=== PATIENT | female | born 1995 | race Caucasian/White ===

== ENCOUNTER 2022-04-06 08:12 | Outpatient (CLI) | payer BC, SELFPAY ==
--- NOTE | 2022-04-06 08:15 | CRLHL7_ITS ---
For Patients: As a result of the Cures Act, medical imaging exams and procedure reports are released immediately into your electronic medical record. You may view this report before your referring provider. If you have questions, please contact your health care provider. OB ULTRASOUND, 04/06/2022 SCOTT by LMP: Unknown. INDICATION: Dating and viability. FINDINGS: Cervix: Visualized. position: Breech. Amniotic fluid: Within normal limits. Placenta: Technique: Transabdominal. Position: Anterior. dopplers: heart rate 171 bpm. BPD: 2.8 cm. 15 w 0 d. HC: 10.8 cm. 15 w 1 d. AC: 8.9 cm. 15 w 1 d. FL: 1.6 cm. 14 w 4 d. FL/AC: 17.5%. HC/AC Ratio: 1.22. EFW: 109 g. Weight: 0 lbs, 4 oz. age by this US: 15 w 0 d. SCOTT by this US: 09/28/2022. IMPRESSION: Single live intrauterine gestation. Gestational age of 15 weeks 0 days. SCOTT of 09/28/2022. Rekha Solorio M.D. Diagnostic/Breast Radiologist [email or web address] [email or web address] shelton/Dictated by: Rekha Solorio MD @ 04/06/2022 9:18:00 AM (Electronically Signed)
== END 2022-04-06 08:13 | disposition home or self-care (01) ==
LOC: US 08:14
PROVIDERS: Visit Provider Physician Assistant
DX: Z34.93 Encounter for supervision of normal pregnancy, unspecified, third trimester (principal); Z3A.15 15 weeks gestation of pregnancy
CPT/HCPCS: 76815; 86592; 86703; 86762; 86787; 86803; 86850; 86900; 86901; 87086; 87340

== ENCOUNTER 2022-05-04 07:12 | Outpatient (CLI) | payer BC, SELFPAY ==
--- NOTE | 2022-05-04 07:15 | CRLHL7_ITS ---
For Patients: As a result of the Century Cures Act, medical imaging exams and procedure reports are released immediately into your electronic medical record. You may view this report before your referring provider. If you have questions, please contact your health care provider. INDICATION: Evaluate anatomy. COMPARISON: 04/06/2022 TECHNIQUE: Real time ortiz scale imaging of the fetus was performed as well as color Doppler analysis of the umbilical vessels. FINDINGS: Sonographic imaging demonstrates a single living intrauterine gestation. Fetus demonstrates a regular cardiac rate of 168 beats per minute. Fetus has a vertex position. The placenta lies anteriorly without evidence of placenta previa. The edge of the placenta is located 10 cm from the internal cervical os. Amniotic fluid volume appears normal. Single deepest vertical pocket: 4.5 cm. The cervix is closed and measures 3.5 cm in length. The composite ultrasound gestational age is calculated at 19 weeks 1 day with an estimated sonographic due date of 09/27/2022. The estimated weight is 252 grams which lies at the 28th %. The following biometric measurements were obtained: Biparietal diameter: 4.6 cm/20 weeks 0 days 87th% Head circumference: 16.6 cm/19 weeks 2 days 56th% Abdominal circumference: 13.5 cm/19 weeks 0 days 44th% Femur length: 2.7 cm/18 weeks 1 day 16th% The HC/AC ratio measures: 1.23 range (1.09-1.26) On anatomic survey, there is a normal appearance of the cerebral ventricles, cavum septi pellucidi, cisterna magna and cerebellum. The nose, lips, and facial profile appear normal. The cervical, thoracic and lumbar spine are well visualized and appear normal. There is a normal four-chamber heart view and the left and right ventricular outflow tracts appear normal. The diaphragm and stomach appear normal. The kidneys and bladder also appear normal. There is a normal three-vessel cord and cord insertion site. The four extremities appear normal. IMPRESSION: Normal OB ultrasound exam with concordance of clinical and sonographic dating. No intrinsic abnormalities noted on anatomic survey. Dictated by Lawrence Rubio MD @ 05/04/2022 10:05:26 AM (Electronically Signed)
== END 2022-05-04 07:13 | disposition home or self-care (01) ==
PROVIDERS: Visit Provider Physician Assistant
DX: Z34.92 Encounter for supervision of normal pregnancy, unspecified, second trimester (principal); Z3A.19 19 weeks gestation of pregnancy
CPT/HCPCS: 76805

== ENCOUNTER 2022-09-08 15:23 | Outpatient (CLI) | payer BC, SELFPAY ==
[2022-09-09 12:52] LABS: Strep B DNA Probe POSITIVE (Negative)
[2022-09-09 12:54] LABS: Strep B Pen/Amox Allergy No
== END 2022-09-08 15:24 | disposition home or self-care (01) ==
PROVIDERS: Visit Provider Advanced Practice Midwife
DX: Z34.93 Encounter for supervision of normal pregnancy, unspecified, third trimester (principal); Z3A.37 37 weeks gestation of pregnancy
CPT/HCPCS: 87081; 87653

== ENCOUNTER 2022-10-05 08:12 | Outpatient (CLI) | payer BC, SELFPAY ==
--- NOTE | 2022-10-05 08:15 | CRLHL7_ITS ---
For Patients: As a result of the Century Cures Act, medical imaging exams and procedure reports are released immediately into your electronic medical record. You may view this report before your referring provider. If you have questions, please contact your health care provider. INDICATION: post dates COMPARISON: none TECHNIQUE: Real time ortiz scale imaging of the fetus was performed. Without non-stress testing. FINDINGS: Sonographic imaging demonstrates a single living intrauterine gestation. Fetus demonstrates a regular cardiac rate of 139 beats per minute. Fetus has a vertex position. The amniotic fluid volume appears normal and there is a single deepest pocket measurement of 9.2 cm. PANCHITO 26.1 cm. The fetus was active and demonstrated normal breathing movements. There was normal flexion and extension of the trunk and extremities. IMPRESSION: Normal biophysical profile score of 8 out of 8. Dictated by Lawrence Rubio MD @ 10/05/2022 11:18:39 AM (Electronically Signed)
== END 2022-10-05 08:13 | disposition home or self-care (01) ==
PROVIDERS: Visit Provider Advanced Practice Midwife
DX: O40.3XX0 Polyhydramnios, third trimester, not applicable or unspecified (principal)
CPT/HCPCS: 76819

== ENCOUNTER 2022-10-05 16:56 | Inpatient (IN) | payer BC, SELFPAY ==
[2022-10-05 17:23] VITALS: BP 139/95; PULSE 92; PULSE 96; RESP 16; TEMP 36.6; O2SAT 98; BMI 37.6
[2022-10-05 18:21] LABS: SARS PCR* Negative SARS-CoV-2 (Negative)
[2022-10-05 18:36] VITALS: BP 121/71; PULSE 81
[2022-10-05] MEDS: DINOPROSTONE 10 MG VAGINAL INSERT VAGINAL (18:48)
--- NOTE | 2022-10-05 19:06 | W.PM.LDBA ---
Subjective History of Present Illness Narrative: Patient is being admitted to Labor and Delivery for induction of labor for polyhydramnios diagnosed today at her 41 week visit with BPP. She is a 27 year old at 41 0/7 weeks gestation. She reports that she is certain her due date is actually 4 days from now based on known date of conception. She is aware that with polyhydramnios, we would recommend induction of labor typically between 39 0/7-39 6/7 or anytime after at time of diagnois. She is supported by her and mother. All questions and concerns have been answered. Her full history and physical was dictated by CLEO Gutierrez on 09/08/2022. Please see this for details. OB PROBLEM LIST 1. First visit @ 15 weeks, late entry to care; routine since 2. Severe needle phobia Desires finger poke blood draw at 28 and 36 weeks: NEED ORDER AT WEEK FOR HGB 14% home testing out of range (10/27). Discontinued testing. 3. Unimmunized, has had no childhood vaccinations. Rubella non-immune, likely decline pp vaccine 5. ED visit [place] 04/29/2022. Presented for recurrent episodes of right lower quadrant pain. While in ED she was asymptomatic, Ob ultrasound was normal, no further workup 6. Anemia?, hgb by fingerpoke 9.6; previously 14.5 at 28 weeks Declines confirmation testing, consider finger poke hgb on admission if possible Plans to start oral iron, M/W/F; Has taken consistently 7. GBS +, Pt aware. DOES NOT WANT TO DISCUSS AGAIN Declination form signed, declines treatment. Please do not discuss with patient again, per her preference. 8. Elevated BP [facility] diagnosis of HTN, 128/90, 124/90 9. Mild polyhydramnios, PANCHITO 26.1 dx at 41.0 weeks. OB - Problem Based A/P Additional Plan (1) Encounter for induction of labor: Status: Acute (2) Polyhydramnios in [place] in third trimester: Status: Acute (3) Elevated blood pressure reading without diagnosis of hypertension: Status: Acute (4) Anemia affecting : Problem details: Possibly inaccurate, taking oral iron; severe needle phobia Status: Acute Plan ASSESSMENT:? 27 at 41 0/7 weeks gestation? complicated by:?late entry to care, unimmunized, Anemia at 36 weeks, GBS +, and Mild polyhydramnios, elevated BP without diagnosis of HTN Labor type: Induced? Category 1 FHR pattern.?? Labor complicated by: Polyhydramnios? GBS positive, declines treatment. GBS declination form signed and on file.? ? PLAN:? 1. Routine intrapartum cares as ordered. Reviewed induction options including Cytotec, Cervidil, cook catheter, and Pitocin. Recommend starting with Cervidil due to time of day, GBS status, and patient preference for minimal intervention. 2. Monitoring per policy, continuous with polyhydramnios and Cervidil? 3. Planning unmedicated . Desires water . Consent signed. Hep C negative. Candidate for analgesia of choice if desired.?? 4. Patient encouraged to reposition and ambulate to promote physiologic labor and .? 5. GBS discussed in length in clinic. Patient declines treatment.desires to not re-discuss during hospital stay. GBS declination signed and scanned into chart. Will try to limit cervical exams and AROM when able. 6. Hgb at 36 by finger poke was 9.6. Patient has severe needle phobia, willing to do lab by finger poke if necessary but prefers to avoid if possible. 28 week hemoglobin by venipuncture was 14.5, most recent hgb may not be the most reliable. Patient has been taking iron supplements and vitamins since. Will draw labs if IV needed for Pitocin. Discussed increased risk for bleeding with polyhydramnios due to uterine atony, will consider AMTSL if concerns for bleeding. Otherwise patient prefers expectant management. 6. Continue to monitor blood pressure. Has been normotensive with 1 reading of 128/90 with repeat 124/90 at visit. Patient possibly has undiagnosed anxiety. Will continue to monitor blood pressures, would discuss labs if necessary. 7. Anticipate Delivery/Labor/Induction Plan Induction method: Cervidil OB Exam Physical Exam Vital signs: Pulse BP Pulse Ox 81 121/71 98 10/05/22 18:36 10/05/22 18:36 10/05/22 17:23 Narrative: Vitals Reviewed Constitutional:? Alert and oriented x3 HEENT:? Normocephalic, atraumatic Neck:? Supple Lungs:? Clear to auscultation bilaterally Heart:? Regular rate and rhythm, no murmur, rub or gallop Abdomen:? Soft, nontender, and gravid. Vertex by Bob's, confirmed with cervical exam. Extremities:? 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 Fetus demonstrates a regular cardiac rate of 139 beats per minute.? Fetus has a vertex position. The amniotic fluid volume appears normal and there is a single deepest pocket measurement of 9.2 cm. PANCHITO 26.1 cm. The fetus was active and demonstrated normal breathing movements. There was normal flexion and extension of the trunk and extremities.? IMPRESSION: Normal biophysical profile score of 8 out of 8. Dictated by Lawrence Rubio MD @ 10/05/2022 11:18:39 AM
[2022-10-05 20:04] VITALS: BP 117/83; PULSE 100
[2022-10-05 20:05] VITALS: RESP 18; TEMP 36.6
[2022-10-06] VITALS (10 sets, daily range): BP systolic 118–135; BP diastolic 62–86; PULSE 78–102; RESP 16–18; TEMP 36.3–36.8
--- NOTE | 2022-10-06 08:13 | PM.OBPNL ---
Documented by User: Cathie Buchanan 10/06/22 08:21 Subjective Date Seen: 10/06/22 Narrative: Elizabeth is coping well with contractions. She was able to sleep overnight and is feeling some contractions this morning. She notes the contractions stop with some positions. Objective Exam: Objective:?? Constitutional: Alert and oriented x3, mild distress, coping well? Vital signs stable, see nurse documentation?? Abdomen: gravid, contractions palpate mild with contractions and soft between Vital Signs: Last Vital Signs Temp 98.3 F 10/06/22 07:15 Pulse 88 10/06/22 07:15 Resp 16 10/06/22 07:15 BP 120/74 10/06/22 07:15 Pulse Ox 98 10/05/22 17:23 Contractions Monitor mode: External Contraction pattern: Regular Contraction intensity: Mild Assessment Assessment: induction ongoing Status: Category l Heart Rate Baseline: 125 Nursing Home Variability: Moderate (6-25) Monitor Accelerations: Present Monitor Decelerations: None Plan Plan: 28year old at 41.1 weeks gestation? complicated by:?Polyhydramnios, anemia, elevated BP without diagnosis of HTN, Rubella non-immune Labor type: Induced, Early labor? Category 1 FHR pattern.?? Labor complicated by: NA? GBS positive? ? PLAN:? 1. Routine intrapartum cares as ordered. Continue with induction of labor for polyhydramnios 2. Monitoring per policy, continuous ? 3. Planning unmedicated . Desires water . Consent signed. Hep C negative. Candidate for analgesia of choice.?? 4. Patient encouraged to reposition and ambulate to promote physiologic labor and .? 5. GBS prophylaxis declined for GBS positive status. Limit vaginal exams. 6. Anticipate Documented by User: Niru Juarez CNM 10/06/22 12:53 Objective Exam: Objective:?? Constitutional: Alert and oriented x3, mild distress, coping well? Vital signs stable, see nurse documentation?? Abdomen: gravid, contractions palpate mild with contractions and soft between. head palpates on maternal right hip, not engaged in pelvis. Plan Plan: 28year old at 41.1 weeks gestation? complicated by:?Polyhydramnios, anemia, elevated BP without diagnosis of HTN, Rubella non-immune Labor type: Induced, Early labor? Category 1 FHR pattern.?? Labor complicated by: NA? GBS positive? ? PLAN:? 1. Routine intrapartum cares as ordered. Continue with induction of labor for polyhydramnios. Discussed giving more time and reassess for further intervention in a few hours. 2. Monitoring per policy, continuous ? 3. Planning unmedicated . Desires water . Consent signed. Hep C negative. Candidate for analgesia of choice.?? 4. Patient encouraged to reposition and ambulate to promote physiologic labor and .? 5. GBS prophylaxis declined for GBS positive status. Limit vaginal exams. 6. Anticipate
[2022-10-06] MEDS: miSOPROStoL 25 MCG/0.25 TABLET VAGINAL ×3 (10:13→18:28)
--- NOTE | 2022-10-06 11:20 | P.OBPN_ITS ---
Subjective Time Seen by Provider: 09:30 Date Seen: 10/06/22 Narrative: Elizabeth is up walking in the room. She reports she no longer feels the contractions, although able to trace some on the monitor. She requested a vaginal exam at this time to help with a plan going forward. Her mother and partner are present and supportive. Objective Exam: Constitutional: Alert and oriented x3, no distress, coping well? Vital signs stable, see nurse documentation?? Abdomen: gravid, contractions palpate mild with contractions and soft between Vital Signs: Last Vital Signs Temp 98.3 F 10/06/22 07:15 Pulse 88 10/06/22 07:15 Resp 16 10/06/22 07:15 BP 120/74 10/06/22 07:15 Pulse Ox 98 10/05/22 17:23 Pelvic Exam Dilation (cm): Finger tip Effacement (%): 0 Station: high Comments: Head does not feel like it is descended into pelvis, off to right by Bob's. 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 complicated by:?late entry to care, unimmunized, Anemia at 36 weeks, GBS +, and Mild polyhydramnios, elevated BP without diagnosis of HTN Labor type: Induced? Category 1 FHR pattern.?? Labor complicated by: Polyhydramnios? GBS positive, declines treatment. GBS declination form signed and on file.? ? PLAN:? 1. Routine intrapartum cares as ordered. Reviewed induction options including Cytotec and Pitocin. As patient is not feeling contractions at this time, opted for Cytotec vaginally every 4 hours per protocol. 2. Monitoring per policy, continuous with polyhydramnios and Cervidil? 3. Planning unmedicated . Desires water . Consent signed. Hep C negative. Candidate for analgesia of choice if desired.?? 4. Patient encouraged to reposition and ambulate to promote physiologic labor and .? 5. GBS discussed in length in clinic. Patient declines treatment.desires to not re-discuss during hospital stay. GBS declination signed and scanned into chart. Will try to limit cervical exams and AROM when able. 6. Continue to monitor blood pressure. Has been normotensive since admission other than one reading of 135/95 with a non-elevated BP after. Patient possibly has undiagnosed anxiety. Will continue to monitor blood pressures, would discuss labs if necessary. 7. Anticipate
[2022-10-07] VITALS (48 sets, daily range): BP systolic 99–140; BP diastolic 57–87; PULSE 67–139; RESP 16; TEMP 36.4–37.2; O2SAT 97–100
--- NOTE | 2022-10-07 00:54 | P.OBPN_ITS ---
Subjective Date Seen: 10/07/22 Narrative: Aleyda was given a dose of Cytotec around 1800. She states that the c ontractions stared to increase in intensity shortly after this dose. She continued to have contractions that increased in intensity and she was able to cope well with them and changed positions frequently. She experienced SROM while sitting on the toilet at 2115. Her contractions then increased more in intensity and she requested to get in the tub. She was able to be moved to the waterbirth room at that time. She has since labored in the tub with great control and is coping well. She felt the urge to push and was found to be complete at 0027. She is now pushing effectively in the tub. 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 Anticipate . Candidate for analgesia of choice. Plans unmedicated. GBS positive. Declines antibiotic treatment. Polyhydramnios. Continuous monitoring. SROM without incident.
[2022-10-07] MEDS: LACTATED RINGERS 1000 ML 1,000 ML 1125 ML IV (05:47)
[2022-10-07] MEDS: ROPIVACAINE 0.2% 100 ml 100 ML 12 MG EPIDURAL (06:35)
[2022-10-07] MEDS: LIDOCAINE 2% (PF) 5 ML VIAL EPIDURAL (06:35)
--- NOTE | 2022-10-07 07:07 | P.ANBPRC_ITS ---
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 . 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 Smoking Status: Never smoker Little interest or pleasure in doing things: not at all Feeling down, depressed, or hopeless: not at all Meds Home Medications and Allergies Home Medications Medication Instructions Recorded Confirmed Type multivitamin (Multiple Vitamins 1 tab PO QDAY 04/06/22 10/05/22 History tablet) ferrous gluconate 240 mg (27 mg 480 mg PO QDAY 10/05/22 10/05/22 History iron) tablet (Ferate) lactobacillus combination no.4 3 3,000 mmu cells PO QDAY 10/05/22 10/05/22 History billion cell capsule (Probiotic) Allergies Allergy/AdvReac Type Severity Reaction Status Date / Time No Known Drug Allergies Allergy Verified 10/05/22 10:13 Results Vital Signs Vital Signs: Last Vital Signs Temp 99 F 10/07/22 04:55 Pulse 139 H 10/07/22 07:03 Resp 16 10/07/22 04:55 BP 109/69 10/07/22 07:03 Pulse Ox 100 10/07/22 06:27 Weight: 102.654 kg Height: 165.1 cm Anesthesia Procedures Epidural Insertion Patient Location: OB Start Time: 06:00 Stop Time: 07:00 Start Date: 10/07/22 Stop Date: 10/07/22 Reason for Block: procedure for pain Patient Position: sitting Performed By: Lizzie Grider Preanesthetic Checklist: IV checked, risks and benefits discussed, monitors and equipment checked, pre-op evaluation, timeout performed and anesthesia consent Prep: chlorhexidine gluconate Monitoring: blood pressure monitoring, continuous pulse oximetry and heart rate Approach: midline Vertebral Space: lumbar (1-5) Needle Type: Tuohy needle Injection Technique: continuous catheter (continuous catheter) Needle gauge: 17 Needle Length (cm): 10 cm Needle Insertion Depth (cm): 8 Catheter Gauge: 19 Catheter Type: multi-orifice Catheter at skin depth (cm): 15 Test Dose Result: negative and lidocaine 1.5% with epinephrine 1 to 200,000
[2022-10-07] MEDS: LACTATED RINGERS 1000 ML 1,000 ML 925 ML IV (08:03)
[2022-10-07] MEDS: OXYTOCIN 30 unit/500 ML in NS 30 UNIT/500 ML BAG IVPB (08:05)
--- NOTE | 2022-10-07 10:02 | PM.OBCN1 ---
OB - CN: HPI Date of Consult Date Seen: 10/07/22 Patient: [facility] Patient Consult date: 10/07/22 Requesting Physician: Denise Caceres CNM Primary Care Provider: Not a Local Provider Consult Narrative Reason for consult: arrest of labor Narrative: The patient is a 27 year old G 1 P 0 at 41 2/7 weeks gestation that was admitted to the Center on 10/05/22 for induction of labor secondary to polyhydramnios and postdates gestation. GBS positive, declined antibiotic prophylaxis. Induction initiated with oral Misoprostol. SROM at 2115 on 10/06/2022. She reached complete cervical dilation at 0030 this morning and actively pushed for about 3 hours. Deep variable and some late decelerations with pushing. Labored down for another 4 hours while doing maternal position changes. Contractions spaced. Epidural administered for pain control at approximately 7am. Now having occasional late decelerations of the heart rate again, mixed with periods of good variability and accelerations. No further rotation or descent of the vertex on miwife's exam. OB PROBLEM LIST 1. First visit @ 15 weeks, late entry to care; routine since 2.? Severe needle phobia Desires finger poke blood draw at 28 and 36 weeks: NEED ORDER AT WEEK FOR HGB 14% home testing out of range (10/27). Discontinued testing. 3.? Unimmunized, has had no childhood vaccinations. Rubella non-immune, likely decline pp vaccine 5. ED visit [place] 04/29/2022.? Presented for recurrent episodes of right lower quadrant pain.? While in ED she was asymptomatic, Ob ultrasound was normal, no further workup 6. Anemia?, hgb by fingerpoke 9.6; previously 14.5 at 28 weeks Declines confirmation testing, consider finger poke hgb on admission if possible Plans to start oral iron, M/W/F; Has taken consistently 7.? GBS +, Pt aware. DOES NOT WANT TO DISCUSS AGAIN Declination form signed, declines treatment. Please do not discuss with patient again, per her preference. 8. Elevated BP [facility] diagnosis of HTN, 128/90, 124/90 9. Mild polyhydramnios, PANCHITO 26.1 dx at 41.0 weeks. History of Present Dating criteria: based on 1st trimester US only History History 1 Elective abortions Para 0 Spontaneous abortions Hx # Term Pregnancies Ectopic pregnancies Hx # Pregnancies Multiple births Number of Living Children Labs Blood type: O (+) positive Rubella: nonimmune RPR/VDLR: nonreactive GBS status: positive HBsAG: negative OB Labs: Lab Assessment Start: 10/05/22 17:12 Freq: ONCE Status: Complete Protocol: [employer] Activity Type Activity Date Activity User E-sign Co-sign Detail Recorded Client Recorded Date Recorded By Document 10/05/22 17:24 [facility] 10/05/22 17:25 [facility] 10/05/22 17:24 Lab Assessment GBS Positive Previous [place] with Invasive GBS No Does Patient Meet Criteria Yes Is Patient Allergic to Penicillin No Treatment Required OK Maternal Blood Type O Maternal RH Factor Positive Evaluate Maternal Rubella Immune Status Non-Immune Hepatitis B Surface Antigen Negative Maternal HIV Status Negative Maternal Syphillis (RPR) Status Negative Are Labs Available Yes Lab Assessment Start: 10/05/22 18:25 Freq: Status: Complete Protocol: [place] Activity Type Activity Date Activity User E-sign Co-sign Detail Recorded Client Recorded Date Recorded By Document 10/05/22 17:40 [facility] [id number] 10/05/22 18:25 [facility] 10/05/22 17:40 Lab Assessment GBS Positive PFSH PFSH Medical History No chronic problems Surgical History History of wisdom tooth extraction ?K08.409 - Partial loss of teeth, unspecified cause, unspecified class (ICD-10) 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 Smoking Status: Never smoker Little interest or pleasure in doing things: not at all Feeling down, depressed, or hopeless: not at all Meds Home Medications and Allergies Home Medications Medication Instructions Recorded Confirmed Type multivitamin (Multiple Vitamins 1 tab PO QDAY 04/06/22 10/05/22 History tablet) ferrous gluconate 240 mg (27 mg 480 mg PO QDAY 10/05/22 10/05/22 History iron) tablet (Ferate) lactobacillus combination no.4 3 3,000 mmu cells PO QDAY 10/05/22 10/05/22 History billion cell capsule (Probiotic) Allergies Allergy/AdvReac Type Severity Reaction Status Date / Time No Known Drug Allergies Allergy Verified 10/05/22 10:13 OB - H&P: Exam Physical Exam: Vital signs: Temp Pulse Resp BP Pulse Ox 97.6 F 68 16 134/75 99 10/07/22 08:47 10/07/22 09:49 10/07/22 08:47 10/07/22 09:49 10/07/22 08:47 Constitutional: Constitutional: no acute distress Routine HEENT Exam: Head: Present normal inspection Routine Neck Exam: Neck: Present full ROM Routine Respiratory Exam: Respiratory: Absent respiratory distress Routine Cardiovascular Exam: Cardiovascular: RRR Detailed Abdominal Exam: Comments: gravid, nontender Detailed Labor and Delivery Exam: Patient Gravid: Yes Dilation (cm): 10 Effacement (%): 100 Consistency: soft Tachysystole: No Contraction intensity: Moderate Fetus (Single): Station: -3 Amniotic Membrane Status: SROM Amniotic Membrane Fluid Description: Clear Heart Rate Baseline: 125 Monitor Accelerations: Present Monitor Decelerations: Variable Routine Neurological Exam: Present alert and oriented X3 OB - CN: A/P Assessment and Plan (1) Encounter for induction of labor: Status: Acute (2) Polyhydramnios in [place] in third trimester: Status: Acute (3) Elevated blood pressure reading without diagnosis of hypertension: Status: Acute (4) Anemia affecting : Problem details: Possibly inaccurate, taking oral iron; severe needle phobia Status: Acute (5) Hx of labor arrest, 2nd stage, currently : Status: Acute Plan Situation discussed with patient. Her labor has arrested in the second stage. At this point, the heart rate tracing is reassuring, but there were deep variable and late decelerations while pushing and occasionally since. This may indicate some distress, which could become more severe as she is still remote from delivery. Prolonged ruptured of membranes in the setting of GBS positivity also is concerning for the potential for development of severe infection if delivery is not affected in a timely fashion. I would recommend proceeding with delivery. Informed consent was obtained for delivery. We reviewed the risks and benefits of primary low transverse section, risks including, but not limited to, bleeding, infection, or injury to other organs. We discussed epidural analgesia and a TAP block for pain control. We reviewed the process of family-centered delivery. We discussed the anticipated post-operative course, activity restrictions and pain control. She is at risk of elier-operative infection, so Ancef and Azithromycin will be administered pre-operatively. She is also at risk for immediate hemorrhage, so will administer TXA at cord clamp. O.R. staffs and Peds informed.
--- NOTE | 2022-10-07 10:05 | P.OBPN_ITS ---
Subjective Time Seen by Provider: 09:15 Date Seen: 10/07/22 Narrative: [Elizabeth is coping well with labor pain/contractions. Her mom and partner are with her for support. She would like to continue with her epidural for comfort and pain management.??Practice push done. Pitocin previously started after epidural placement. Long discussion with Elizabeth and her mom about the current situation. Has been complete since about 0030. The baby has not come down during this time. She pushes, with good effort and the baby moves during the push, but is not coming lower. The contractions have also spaced, which can be an indication that her uterus is also getting tired. Baby is also having lates w/ ctx. A review of the previous strip indicates periods of repetitive late decels, especially with pushing. Reviewed risks of baby not tolerating labor/ctx, increased risk of infection, increased risk of PP hemorrhage. Dr. Archer also at bedside at this point. Questions answered about and recommendation for . Objective Exam: VSS, afebrile General Appearance:? Calm, cooperative. No acute distress. ? Psychiatric Exam: Alert and oriented, appropriate affect Abdomen: Gravid Ctx: ?Q 8-9 min apart. FHTs: Baseline: 130. Variability: moderate. Accels: occasionally. Dece ls: lates. SVE: Complete, -2 station. Caput noted. Membranes: SROM, large amount of clear fluid ? Vital Signs: Last Vital Signs Temp 97.6 F 10/07/22 08:47 Pulse 79 10/07/22 10:02 Resp 16 10/07/22 08:47 BP 121/69 10/07/22 10:02 Pulse Ox 99 10/07/22 08:47 Pelvic Exam Dilation (cm): 10 Effacement (%): 100 Station: high Plan Plan: Assessment:?? at 41.1 gestation?? GBS positive Patient is coping well with challenges of labor.?? Labor type: Induced, complete X 8.5 hours complicated by: polyhydramnios Labor complicated by: Prolonged second stage, lack of descent noted Late decels ? Plan:?? Pt and her support agree to .
--- NOTE | 2022-10-07 11:45 | PM.OBPRCCS ---
Procedure Pre-op/Post-op diagnoses: Pre-Op/Post-Op Diagnoses Operation Date: 10/07/22 11:00 <No data on this case meets the specified criteria> Procedure Done: Global Procedure Details: Procedures Operation Date: 10/07/22 11:00 Actual Procedure Side Surgeon p Section Not Applicable Katy Archer MD Estimated blood loss (mL): 716 Disposition: floor Anesthesia type: TAP block Complications: None. Narrative: PREOPERATIVE DIAGNOSES: 1. Intrauterine at 41 2/7 weeks' gestation. 2. Secondary arrest of descent. 3. Prolonged labor. 4. GBS positive status, declined antibiotic prophylaxis. POSTOPERATIVE DIAGNOSES: 1. Intrauterine at 41 2/7 weeks' gestation. 2. Secondary arrest of descent. 3. Prolonged labor. 4. GBS positive status, declined antibiotic prophylaxis. NAME OF PROCEDURE: Primary low transverse section. SURGEON: Suzi. ANESTHESIA: Epidural. KAITLIN block. COMPLICATIONS: None.. ESTIMATED BLOOD LOSS: 716 mL. DRAINS: Harper to gravity. FINDINGS: Live-born male , cephalic presentation, ROP position and asynclitic. Apgars 8 and 9 at 1 and 5 minutes respectively. weight 9 lb 9 oz. Normal appearing uterus, tubes, and ovaries. PROCEDURE: After obtaining informed consent, the patient was taken to the operating room where spinal anesthesia was obtained and found to be adequate. She was prepared and draped in the normal sterile fashion in the dorsal supine position with a leftward tilt. A Pfannenstiel skin incision was made with a scalpel. This incision was carried down to the underlying layer of fascia with the Bovie. The fascia was incised in the midline and the incision extended laterally. The superior and inferior aspects of the fascial incision were grasped with Treasure clamps, elevated and the underlying rectus muscles dissected off sharply and with electrocautery. The rectus muscles were then in the midline. The Gilbert O retractor was then placed into the incision. The lower uterine segment was then incised in a transverse fashion with the scalpel. Upon entry into the uterus, clear amniotic fluid was noted. The uterine incision was extended laterally with blunt finger fractionation. The 's head was delivered atraumatically, with additional upward pressure from below by an RN wearing a sterile glove, followed by the remainder of the 's body. The nose and mouth were suctioned with the bulb suction. The cord was doubly clamped and cut after 30 second delay, and the infant was handed off the field to Lizzie Bronson PA-C for evaluation. Tranexamic acid 1000 mg was administered intravenously immediately following cord clamp. The placenta was delivered spontaneously with umbilical cord traction and fundal massage. The uterus was cleared of all clots and debris. The uterine incision was reapproximated in a running locking fashion with a 0 chromic suture. A 2nd layer of the same suture was used to imbricate in horizontal fashion. The gutters were irrigated and suctioned. All instruments and retractors were removed. The anterior peritoneum was reapproximated in a running fashion with a 3-0 Vicryl suture. The subfascial tissues were carefully inspected and hemostasis assured. The fascia was reapproximated in a running fashion with a looped 0 Maxon suture. The subcutaneous tissues were copiously irrigated. Hemostasis was assured. The subcutaneous fat layer was reapproximated with interrupted sutures of 3-0 plain gut. The skin was closed in a subcuticular fashion with 4-0 Vicryl. LiquiBand and dressing were applied. The patient tolerated the procedure well. Sponge, lap, needle, and instrument counts were reported as correct x2. The patient was taken to the recovery room, awake, and in stable condition. She did receive 2 grams of IV Ancef and 500 mg IV Azithromycin preoperatively. PATHOLOGY: Placenta. Fallentimber Infant total score - 1 minute: 8 total score - 5 minute: 9
--- NOTE | 2022-10-07 12:15 | W.ANESCHARGE ---
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
--- NOTE | 2022-10-07 12:16 | P.NB_ITS ---
Nerve Block Nerve Block Time Seen by Provider: 11:45 Date Seen: 10/07/22 Type of block requested by surgeon for post-operative analgesia: TAP Side: bilateral Time out performed: Yes Verification of patient name: Yes Verification of date of : Yes Site marking: site marked Name of person performing procedure: CARMEN Grider Continuous monitoring Was continuous monitoring of O2 sat, B/P, electronic device monitor, recorded every 15 minutes?: Yes Procedure Checklist: sterile prep, needles and gloves Ultrasound guided. Images saved: Yes Medications given in 5ml increments after negative aspiration: Marcaine (30 ml total) %: 0.25 mL: 15 Needle gauge: 20 and Exparel (10 ml total) mL: 5 Needle gauge: 20 Patient tolerated procedure well: Yes Block Charges Block Charge (with Pro Fee): TAP Bilateral Use of Ultrasound Machine for Block: Yes- US Guidance/pain block
[2022-10-07] MEDS: LACTATED RINGERS 1000 ML 1,000 ML 125 ML IV (13:01)
[2022-10-07] MEDS: KETOROLAC 30 MG/ML inj IVP ×2 (17:28→23:41)
[2022-10-08 00:42] VITALS: BP 102/64; PULSE 98; RESP 16; TEMP 37.1; O2SAT 96
[2022-10-08 04:42] VITALS: BP 121/78; PULSE 85; RESP 18; TEMP 36.6; O2SAT 95
[2022-10-08] MEDS: KETOROLAC 30 MG/ML inj IVP ×3 (07:38→20:11)
[2022-10-08] MEDS: DOCUSATE SODIUM 100 MG CAPSULE PO (07:38)
[2022-10-08 07:51] VITALS: BP 104/62; PULSE 73; RESP 18; TEMP 36.6; O2SAT 97
--- NOTE | 2022-10-08 10:33 | PM.OBPNCS1 ---
OB - PN: A/P Assessment and Plan (1) Status post primary low transverse section: Status: Acute (2) Anemia associated with acute blood loss: Problem details: Patient was anemic prior to delivery as well Status: Acute Assessment and Plan: The patient is asymptomatic. Continue to observe vital signs and clinical status. Plan day: 1 Plan: routine postop care Comments: I anticipate that the patient will not be ready for discharge until Sunday, as the is on IV antibiotics at this time for the next 48 hours. OB - PN: Subj Subjective Date Seen: 10/08/22 Patient comments: pain well controlled and tolerating diet [place] status: Narrative: The patient is a 27-year-old 1 para 1001 who is postoperative day 1 following a primary low transverse section for arrest of descent. She is doing well this morning. She had prolonged rupture of membranes and was group B strep positive, and had declined antibiotic prophylaxis. Her had some difficulty with retraction and grunting overnight, and is now on antibiotics. He is otherwise doing well. OB - PN: Obj Exam Physical Exam: Vital signs: Temp Pulse Resp BP Pulse Ox O2 Del Method 97.8 F 73 18 104/62 97 Room Air 10/08/22 07:51 10/08/22 07:51 10/08/22 07:51 10/08/22 07:51 10/08/22 07:51 10/08/22 07:51 Constitutional: Constitutional: no acute distress Routine Respiratory Exam: Respiratory: Present CTA bilaterally; Absent respiratory distress Routine Cardiovascular Exam: Cardiovascular: Present RRR; Absent murmur Routine Abdominal Exam: Abdominal: Present soft; Absent tenderness Fundus: Present firm Routine Extremities Exam: Extremities: Present normal inspection and pedal edema; Absent calf tenderness Routine Neurological Exam: Neurological: Present alert and oriented X3 Routine Psychiatric Exam: Psychiatric: Present normal affect Wound Management: Method: suture Examination: Present clean, dry and intact; Absent erythematous Comments: Pfannenstiel incision Urinary Catheter Management: Urethral: Cath placed during this visit: yes, but has since been removed by the nurse Reason for continuing: not indwelling catheter Insertion date: 10/07/22 Insertion time: 07:51 Removal date: 10/08/22 Removal time: 00:10 OB - PN: Obj Data Labs Labs: Laboratory Results - last 24 hr 10/08/22 08:20 Hgb 8.0 L
--- NOTE | 2022-10-08 10:42 | P.OBPN_ITS ---
Subjective Date Seen: 10/07/22 Narrative: Late documentation for 10/07/22 at 0600. At 2014 a discussed was had about the lack of progress pushing the tub. The patient was offered to get out of the tub to try different positions with pushing. She is agreeable to this and got out and alternated between pushing and resting as much as possible in the bed on her side and in hands and knees. Encouraged many different positions and position changes. At 344 a long discussion with the patient, her and her mom was had about her lack of progress with pushing. Her contractions had also spaced out to Q5-8 minutes by this time. Present and education on the risks and benefits of options including getting epidural anesthesia, IV Pitocin augmentation, additional position changes including flying cowgirl or consulting with OB provider for a delivery. She decided to try the position changes with a SVE after to monitor for progress. She had very little progress after this so after another discussion of risks and benefits, the patient decided she would like to try the Pitocin infusion but would first would like to get an epidural. Discussed that Pitocin could be attempted but that there were already some noted decelerations with contractions and that the baby may not tolerated the added frequency and intensity of Pitocin. She would like to proceed with this at this time and reevaluate again in the future. Objective Vital Signs: Last Vital Signs Temp 97.8 F 10/08/22 07:51 Pulse 73 10/08/22 07:51 Resp 18 10/08/22 07:51 BP 104/62 10/08/22 07:51 Pulse Ox 97 10/08/22 07:51 O2 Del Method Room Air 10/08/22 07:51 Pelvic Exam Dilation (cm): 10 Effacement (%): 100 Contractions Monitor mode: External Contraction Frequency: 5-8 Contraction pattern: Regular Contraction intensity: Strong/Firm Assessment Amniotic Membrane Status: SROM Status: Category l Heart Rate Baseline: 125 Mcfp Variability: Moderate (6-25) Monitor Accelerations: Present Monitor Decelerations: Variable
[2022-10-08 17:02] VITALS: BP 123/82; PULSE 90; RESP 16; TEMP 36.6; O2SAT 98
[2022-10-08] MEDS: ACETAMINOPHEN 500 MG TABLET 1000 MG PO (17:23)
[2022-10-09 00:15] VITALS: BP 116/77; PULSE 78; RESP 16; TEMP 36.7; O2SAT 95
[2022-10-09] MEDS: ACETAMINOPHEN 500 MG TABLET 1000 MG PO ×3 (00:31→20:48)
[2022-10-09] MEDS: IBUPROFEN 600 MG TABLET PO ×3 (03:27→18:02)
--- NOTE | 2022-10-09 08:04 | PM.OBPNCS1 ---
OB - PN: A/P Assessment and Plan (1) Status post primary low transverse section: Status: Acute (2) Anemia associated with acute blood loss: Problem details: Patient was anemic prior to delivery as well Status: Acute Plan Plan: routine postop care Comments: Assessment/Plan G 1 P 1 status post uncomplicated primary . 1. ?Continue route PP cares 2. ?. ?May see if desired 3. ?Anticipate discharge home tomorrow 4. ?Acute anemia. ?Iron supplement ordered OB - PN: Subj Subjective Time Seen by Provider: 08:04 Date Seen: 10/09/22 Interval history: Elizabeth is a 27 y.o. who was admitted to [facility] for IOL for polyhydramnios. ?She had an uncomplicated . ? Patient comments: no complaints and pain well controlled [place] status: and doing well Narrative: The patient feels well. ?The pain is well controlled with current medications. ?She has no new complaints. ?She is breast feeding and reports things are somewhat of a struggle.? the patient has done well.? Vitals have been stable.? She has remained afebrile.? Has a good appetite, is tolerating a general diet. ?She is voiding without difficulty.? She is passing gas and has not had a bowel movement.? She is ambulating and denies any dizziness.? Has Small amount of rubra lochia. Her baby is currently on antibiotics, so she is not planning to discharge until tomorrow. OB - PN: Obj Exam Physical Exam: Vital signs: Temp Pulse Resp BP Pulse Ox O2 Del Method 98.1 F 78 16 116/77 95 Room Air 10/09/22 00:15 10/09/22 00:15 10/09/22 00:15 10/09/22 00:15 10/09/22 00:15 10/09/22 00:15 Narrative: VSS. Afebrile GENERAL APPEARANCE: ?normal affect, alert, no distress MOOD: ?appropriate HEENT: normocephalic, neck supple, full ROM CHEST: ?Symmetrical chest wall movement. ?Normal respiratory effort. ?Clear to auscultation HEART: ?regular rate and rhythm ABDOMEN: ?soft, non-tender. Uterine fundus is firm, 2 below Umbilicus, Midline and is appropriate for the stage of recovery. ?Bowel sounds present. EXTREMITIES: ?normal and +1 edema SKIN: warm, dry. Incision clean/dry/well approximated. No signs of infection noted. Urinary Catheter Management: Urethral: Cath placed during this visit: yes, but has since been removed by the nurse Reason for continuing: not indwelling catheter Insertion date: 10/07/22 Insertion time: 07:51 Removal date: 10/08/22 Removal time: 00:10 OB - PN: Obj Data Labs Labs: Laboratory Results - last 24 hr 10/08/22 08:20 Hgb 8.0 L
[2022-10-09] MEDS: DOCUSATE SODIUM 100 MG CAPSULE PO (08:55)
[2022-10-09 08:56] VITALS: BP 116/81; PULSE 76; RESP 16; TEMP 36.5; O2SAT 97
[2022-10-09 17:20] VITALS: BP 120/85; PULSE 87; RESP 16; TEMP 36.7; O2SAT 96
[2022-10-09] MEDS: FERROUS SULFATE 325 MG TABLET PO (18:02)
[2022-10-10] MEDS: IBUPROFEN 600 MG TABLET PO ×3 (00:21→13:36)
[2022-10-10 01:45] VITALS: PULSE 87; RESP 16; TEMP 37; O2SAT 96
[2022-10-10] MEDS: ACETAMINOPHEN 500 MG TABLET 1000 MG PO ×2 (04:59→11:48)
[2022-10-10 08:30] VITALS: BP 114/80; PULSE 100; RESP 16; TEMP 36.8; O2SAT 97
--- NOTE | 2022-10-10 08:35 | PM.OBDSCS1 ---
DS: Providers Provider Date Seen: 10/10/22 Date of admission: 10/05/22 16:56 Primary care physician: Not a Local Provider Admitting Clinician: Marlena Miramontes CNM Attending Physician on discharge: Niru Juarez CNM Date of Discharge: 10/10/22 DS: Diagnosis Discharge Diagnosis (1) care and examination immediately after delivery: Status: Acute (2) Status post primary low transverse section: Status: Acute (3) Lactating mother: Status: Acute Exam Narrative: Exam Narrative: GENERAL APPEARANCE:? normal affect, alert, no distress MOOD:? appropriate CHEST:? clear to auscultation HEART:? regular rate and rhythm ABDOMEN:? soft, non-tender the uterine fundus is at Umbilicus, Midline and is appropriate for the stage of recovery. PERINEUM:? mild edema of the perineum EXTREMITIES:? normal and no edema Incision: Healing well, no surrounding erythema, abnormal induration or discharge Const: Vital Signs, click to edit/add: Vital Signs - 24 hr 10/09/22 08:56 10/09/22 17:20 10/10/22 01:45 Temperature 97.7 F 98.1 F 98.6 F Pulse Rate [Pulse Oximeter] 76 87 87 Respiratory Rate 16 16 16 Blood Pressure [Le ft Arm] 116/81 120/85 Pulse Oximetry 97 96 96 Oxygen Delivery Me thod Room Air Room Air Room Air Documenting provider has reviewed patient's vital signs: yes Common normals: no apparent distress OB - DS: Summary Hospital Course Hospital Course: Elizabeth is a 27 year old G 1 P 1 at 41 2/7 weeks gestation that was admitted to the Center on 10/05/22 for induction of labor for polyhydramnios. She had an uncomplicated delivery. She delivered a viable male infant. The patient feels well. ?The pain is well controlled with current medications. ?She has no new complaints. ?She is [breast feeding] and reports things are [] going well.? the patient has done well.? Vitals have been stable.? She has remained afebrile.? Has a good appetite, is tolerating a general diet. ?She is voiding without difficulty.? She is passing gas and has [not] had a bowel movement.? She is ambulating and denies any dizziness.? Has Small amount of rubra lochia. She is undecided for prevention. Peripartum Data Procedures: Procedures Operation Date: 10/07/22 11:00 Actual Procedure Side Surgeon p Section Not Applicable Katy Archer MD complications: none [place] Infant Gender: Male Infant Discharge Plan: Home Status at Discharge Functional status at discharge: independent ambulation Overall status at discharge: patient is progressing back to baseline Time Spent with Patient Time attestation: Total time spent providing and/or coordinating discharge services: Discharge Plan Discharge Disposition: Home, Self-Care Date of Admission: 10/05/22 16:56 Attending Physician on Admission: Marlena Miramontes Attending Provider on Discharge: Niru Juarez Primary Care Provider: Provider,Not a Local Condition: Stable Anticipated Discharge Date/Time: 10/10/22 12:00 Discharge Medications: New acetaminophen 500 mg Tablet 1,000 mg PO Q6H PRN (Reason: Pain) Qty: 0 0RF docusate sodium 100 mg Capsule 100 mg PO DAILY Qty: 90 0RF ibuprofen 600 mg Tablet 600 mg PO Q6H PRN (Reason: Pain) Qty: 60 0RF Continued multivitamin [Multiple Vitamins] Tablet 1 tab PO QDAY ferrous gluconate [Ferate] 240 mg (27 mg iron) tablet 480 mg PO QDAY Probiotic 3 billion cell capsule 3,000 mmu cells PO QDAY Rx Instructions: administer with a meal Discharge Orders: Discharge Order (Routine); Ordered 10/10/22 Ordered By: Niru Juarez Patient Education: OB Over the Counter Medication Information, OB /Breast Feeding Additional Instructions: Discharge instructions were reviewed with the patient including signs and symptoms of infection and home going medications Lifting Restrictions: 20 pounds for 6 weeks No not submerge incision under water X 2 weeks? Nothing vaginally for 6 weeks: no tampons or intercourse Do not drive while taking narcotic pain medication(s) Off Work or School for 8 weeks 2-week visit: incision check, discuss feeding concerns, review control options and screen for anxiety/depression. 6-week visit for an annual exam. consultation services are available to all mothers and babies for the first year after delivery.? To make an appointment, please call [phone]. Activity Level: Activity as Tolerated Discharge Diet: Regular Follow Up Appointments: [facility] [Provider Group] Forms: MyHealth Info Instructions
[2022-10-10] MEDS: DOCUSATE SODIUM 100 MG CAPSULE PO (08:40)
[2022-10-10] MEDS: FERROUS SULFATE 325 MG TABLET PO (08:40)
== END 2022-10-10 13:50 | disposition home or self-care (01) | DRG 540 ==
PROVIDERS: Obstetrics & Gynecology; Admitting Provider Advanced Practice Midwife; Visit Provider Advanced Practice Midwife
PROC: 10D00Z1 Extraction of Products of Conception, Low, Open Approach (ICD-10-PCS; CPT 59514; principal; 2022-10-07 10:45)
DX: O40.3XX0 Polyhydramnios, third trimester, not applicable or unspecified (principal); O32.4XX0 Maternal care for high head at term, not applicable or unspecified; O63.1 Prolonged second stage (of labor); O48.0 Post-term pregnancy; D62 Acute posthemorrhagic anemia; O99.02 Anemia complicating childbirth; R03.0 Elevated blood-pressure reading, without diagnosis of hypertension; O99.824 Streptococcus B carrier state complicating childbirth; F40.231 Fear of injections and transfusions; Z37.0 Single live birth; Z3A.41 41 weeks gestation of pregnancy
CPT/HCPCS: 01967; 01968; 36415; 59200; 76942; 85018; 87635; 88307; 99140; A9270; C9290; J0456; J1885; J2274; J2370; J2590; J2795; J3010; J3490; J7120